=== PATIENT | female | born 1965 | race Caucasian/White ===

== ENCOUNTER 2024-05-07 18:49 | Outpatient (CLI) | payer OTHER, SELFPAY ==
--- NOTE | 2024-05-07 18:45 | DI.RAD_ITS ---
Exam(s) XR RIBS RT W PA LAT CHEST EXAM: XR RIBS RT W PA LAT CHEST CLINICAL HISTORY: evaluate pathology TECHNIQUE: 2D digital imaging was performed. COMPARISON: No exams were available for comparison FINDINGS: Total = 6 views RIBS 4 VIEWS-RIGHT There are no obvious acute rib fractures evident. No lytic rib lesions identified. CXR- 2 VIEWS: No lung contusion or pneumothorax. There is no pleural effusion evident. Heart size is normal and there is no significant mediastinal widening. Descending thoracic aorta is somewhat tortuous. IMPRESSION: 1. No obvious rib fractures evident. Also no significant rib lesions. 2. No ipsilateral lung nor pleural abnormality evident. No pneumothorax. Lungs are clear. DATA REPOSITORY: RADIATION DOSE DELIVERED:
--- NOTE | 2024-05-07 19:59 | DI.VRAD_ITS ---
PROCEDURE INFORMATION: Exam: XR Right Ribs Exam date and time: 05/07/2024 7:01 PM Age: 58 years old Clinical indication: Other: Rib pain; Painful respiration TECHNIQUE: Imaging protocol: Radiologic exam of the right ribs. Views: 2 views. COMPARISON: No relevant prior studies available. FINDINGS: Bones/joints: Oblique views of the right hemithorax show no rib fracture. Soft tissues: Normal. IMPRESSION: No acute findings. PROCEDURE INFORMATION: Exam: XR Chest Exam date and time: 05/07/2024 7:01 PM Age: 58 years old Clinical indication: Other: Rib pain; Painful respiration TECHNIQUE: Imaging protocol: Radiologic exam of the chest. Views: 2 views. COMPARISON: No relevant prior studies available. FINDINGS: Lungs: Lungs are clear with no infiltrate or nodule. Pleural spaces: Unremarkable. No pleural effusion. No pneumothorax. Heart/Mediastinum: Cardiomediastinal silhouette is normal. Vasculature: Tortuous aorta. Bones/joints: Unremarkable. IMPRESSION: No active cardiopulmonary disease. Dictated and Authenticated by: Siddhartha Avina MD. Ordering:RAJINDER Momin MD
== END 2024-05-07 19:09 ==
PROVIDERS: Visit Provider Nurse Practitioner Family
DX: R07.81 Pleurodynia (principal)
CPT/HCPCS: 71046; 71100

== ENCOUNTER 2024-05-08 11:06 | Emergency (ER) | payer OTHER, SELFPAY ==
--- NOTE | 2024-05-08 11:00 | RT.EKG_ITS ---
APPROVED REPORT Exam: Resting ECG Reason for Exam: chest pain Patient Location: E HR:73 bpm ECG Measurements Heart Rate 73 AXIS VT 183 P 42 QRSd 87 QRS -2 QT 365 T 36 QTc 403 Conclusion Sinus rhythm...normal P axis, V-rate 60- 99 Physician: no stemi
--- NOTE | 2024-05-08 11:00 | DI.CT_ITS ---
Exam(s) CT CHEST PE CTA EXAM: CT CHEST PE CTA CLINICAL HISTORY: chest pain, PCP wanted to r/o PE. TECHNIQUE: Imaging Protocol: CT angiography of the chest was performed using pulmonary embolus jose col. Multi planar reconstructions were performed. CONTRAST MATERIAL: Intravenous: Omnipaque 350 Contrast volume: 100 cc COMPARISON: No exams were available for comparison FINDINGS: CHEST: PULMONARY ARTERIES: There are no intraluminal filling defects to suggest acute pulmonary emboli. LUNGS: There are no infiltrates nor evidence of pulmonary infarction.. Markings both lung cole con sistent with some bilateral air trapping noted. There are no pleural effusions. MEDIASTINUM: There is no hilar nor mediastinal adenopathy. Visualized thyroid unremarkable. CARDIAC: Heart size is upper normal. There is no pericardial effusion.There is no shift of the inter ventricular septum. The diameter of the ascending thoracic aorta is enlarged measuring 4 cm. The di ameter of the mid aortic arch is also enlarged measuring 3.1 cm. The diameter of the descending thor acic aorta is upper normal. There is no evidence of aortic dissection. PARTIALLY VISUALIZED UPPERMOST ABDOMEN: No obvious findings OSSEOUS: No significant osseous lesions.. OTHER: Lower images of this study reveal evidence of prior bariatric surgery. The Hussain limb is not d ilated and the [place] excluded stomach is not dilated. No free air seen. IMPRESSION: 1. No evidence of acute pulmonary emboli. No evidence of pulmonary infarction.No pleural effusions. 2. Dilated ascending thoracic aorta measuring 4 cm diameter. No evidence of aortic dissection nor pe ricardial effusion. Normal heart size. 3. Evidence of prior bariatric surgery noted RADIATION DOSE DELIVERED: 153.18mGy.cm Total DLP DATA REPOSITORY: All CT scans at this facility are submitted to the National Radiology Data Registry (NRDR) Dose Index Registry (DIR) with the [employer] (A[employer]). RADIATION OPTIMIZATION: All CT scans at this facility use at least one of these dose optimization te chniques: automated exposure control; mA and/or kV adjustment per patient size (includes targeted exa ms where dose is matched to clinical indication); or iterative reconstruction.
[2024-05-08 11:11] VITALS: BP 128/84; PULSE 80; RESP 24; TEMP 36.4; O2SAT 97
[2024-05-08 11:14] VITALS: BP 128/84; PULSE 80; RESP 24; TEMP 36.4; O2SAT 97
[2024-05-08 11:43] LABS: Abs Immature Grans 0.03 10^3/uL (0.0-0.06); Absolute Basophil Count 0.06 10^3/uL (0.0-0.2); Absolute Eosinophil Count 0.26 10^3/uL (0.0-0.7); Absolute Lymphocyte Count 2.19 10^3/uL (1.2-3.4); Absolute Monocyte Count 0.57 10^3/uL (0.1-0.8); Absolute Neutrophil Count 4.82 10^3/uL (1.2-6.7); Basophils % 0.8 %; Eosinophils % 3.3 %; HCT 40.1 % (36.0-46.0); Immature Grans % 0.4 %; Lymphocytes % 27.6 %; MCH 28.7 pg (27.0-33.0); MCHC 32.4 % (32.0-36.0); MCV 89 fL (80-95); MPV 11.1 fL (8.0-11.0); Monocytes % 7.2 %; Neutrophils % 60.7 %; Platelet Count 273 10^3/uL (130-400); RBC 4.53 10^6/uL (3.93-5.22); RDW 12.9 % (11.7-14.6); RDW-SD 41.8 fL; WBC 7.93 10^3/uL (4.4-10.8)
[2024-05-08 12:07] LABS: ALT 23 U/L (14-59); AST 16 U/L (15-37); Albumin 3.8 g/dL (3.4-5.0); Alkaline Phosphatase 104 U/L (46-116); Anion Gap 9.9 mmol/L (3-11); BUN 11 mg/dL (7-18); Bilirubin, Total 0.43 mg/dL (0.2-1.0); CO2 25.1 mmol/L (21.0-32.0); CREATININE 0.7 mg/dL (0.55-1.02); Calcium 9.1 mg/dL (8.5-10.1); Chloride 108 mmol/L (98-107); Estimated GFR 100.81 (mL/min/1.73m2); Glucose 73 mg/dL (74-106); NT-proBNP 132 pg/mL (<300); Potassium 4.6 mmol/L (3.5-5.1); Sodium 143 mmol/L (136-145); Total Protein 7.4 g/dL (6.4-8.2); Troponin I 6 ng/L (<or=51)
--- NOTE | 2024-05-08 12:29 | ED.GENADUL_ITS ---
Discharge Plan Disposition Patient Disposition: Home Condition: Good Discharge Details Chief Complaint: RespSymp Clinical Impression: Chest wall discomfort Primary Care Provider: Unknown,Unknown ED Provider: Francis Pino Home Meds and New Rx's Prescriptions: No Action No Known Home Meds Discharge Instructions Instructions: Chest Pain, Adult ED Additional Instructions: At this time your CT scan shows no evidence of blood clots, tumors, masses or other significant abnormalities. Your laboratory workup is notably reassuring with no signs of significant cardiac strain, heart attack, or other abnormality. Please take Tylenol and Motrin as needed for pain. If you notice any worsening of your symptoms, or any new symptoms such as vomiting, diarrhea, fever, chills, shortness of breath, chest pain, numbness, weakness, or fainting , please return immediately to the emergency department for reevaluation. Please follow up with your primary care provider as soon as possible for reassessment and reevaluation. As always, it was a pleasure participating in your medical care today. HPI General Date/Time Provider Initiated Documentation: 05/08/24 11:11 . HPI Narrative: 58-year-old female with a past medical history of pulmonary emboli, DVTs, MTHFR, who in the past was on Coumadin, but stopped taking Coumadin in 2015, who presents today with right chest pain. Patient states that 5 days ago she was wrestling on the couch with her and family members, she denies any focal trauma to her chest or back, but there was some rough leg wrestling that occurred. Later that day she noticed some soreness in her right chest, but it was mild. It continued for the next 24 to 48 hours. However about 48 hours ago she had a single cough, after which she had significant chest discomfort in the right chest. It is sharp and aching in nature. It was notably worse with breathing and activity. It was also worse with movement. She denies any further cough. She denies any fever or chills. She denies any numbness tingling or weakness. She denies any hemoptysis. No recent long trips surgeries or procedures. No calf pain swelling or tenderness. She did go to [facility] where she received an x-ray which was negative for significant abnormality, however because of her continued symptoms, it was recommend that she go to the ER for further assessment for potential PE. Related Data Home Medications ?Medication ?Instructions ?Recorded ?Confirmed Unknown [No Known Home Meds] 05/07/24 05/07/24 Allergies Allergy/AdvReac Type Severity Reaction Status Date / Time clindamycin Allergy Severe Cardiac Verified 05/07/24 18:07 Dysrhythmia General Stated Complaint: RespSymp BJ: 3 Review of Systems All systems reviewed & are unremarkable except as noted in HPI and below Exam Narrative Exam Narrative: 1.Const: Well-nourished, Well-developed, appearing stated age 2.Eyes: PERRL, no conjunctival injection, and symmetrical lids. 3.ENT: Atraumatic external nose and ears. Moist MM. Neck: Symmetric, trachea midline, No thyromegaly. 4.CVS: +S1/S2, No murmurs or gallops. Peripheral pulses 2+ and equal in all extremities. Brisk capillary refill in all extremities. 5.RESP: Unlabored respiratory effort. Clear to auscultation bilaterally. No wheezes rales or rhonchi 6.GI: Soft, Nontender/Nondistended, No hepatosplenomegaly. No guarding or rebound. 7.MSK: Normocephalic/Atraumatic, Extremities w/o deformity or ttp No cyanosis or clubbing, Normal movement of all extremities. Midline palpation of cervical thoracic and lumbar spine elicits no significant tenderness. No reproducible rib tenderness. No rash or evidence of bruising. 8.Skin: Warm, Dry. No rashes or lesions. 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 Sensation grossly intact, no focal neurologic deficits. 10.Psych: (AAO) x3. Appropriate mood and affect Course Vital Signs Vital signs: Vital Signs Temperature 36.4 C L 05/08/24 11:11 Pulse 80 05/08/24 11:11 Respiratory Rate 05/08/24 11:11 Blood Pressure 128/84 05/08/24 11:11 Pulse Oximetry 97 05/08/24 11:11 Temperature 36.4 C L 05/08/24 11:14 Pulse 80 05/08/24 11:14 Respiratory Rate 24 05/08/24 11:14 Respiratory Effort Normal 05/08/24 11:14 Blood Pressure 128/84 05/08/24 11:14 Blood Pressure Position Sitting 05/08/24 11:14 Pulse Oximetry 97 05/08/24 11:14 Oxygen Delivery Method Room Air 05/08/24 11:14 Oxygen Flow Rate 0 05/08/24 11:11 Lab/Test Results Lab/Test Results: Laboratory Tests Range/Units 05/08/24 11:31 WBC (4.4-10.8) 10^3/uL 7.93 RBC (3.93-5.22) 10^6/uL 4.53 Hgb (11.2-15.7) g/dL 13.0 Hct (36.0-46.0) % 40.1 MCV (80-95) fL 89 MCH (27.0-33.0) pg 28.7 MCHC (32.0-36.0) % 32.4 RDW (11.7-14.6) % 12.9 Plt Count (130-400) 10^3/uL 273 MPV (8.0-11.0) fL 11.1 H Immature Gran % % 0.4 Neutrophils % % 60.7 Lymphocytes % % 27.6 Monocytes % % 7.2 Eosinophils % % 3.3 Basophils % % 0.8 Nucleated RBC % (0.0-0.3) % 0.0 Absolute Neutrophils (1.2-6.7) 10^3/uL 4.82 Absolute Lymphocytes (1.2-3.4) 10^3/uL 2.19 Absolute Monocytes (0.1-0.8) 10^3/uL 0.57 Absolute Eosinophils (0.0-0.7) 10^3/uL 0.26 Absolute Basophils (0.0-0.2) 10^3/uL 0.06 Sodium (136-145) mmol/L 143 Potassium (3.5-5.1) mmol/L 4.6 Chloride (98-107) mmol/L 108 H Carbon Dioxide (21.0-32.0) mmol/L 25.1 Anion Gap (3-11) mmol/L 9.9 BUN (7-18) mg/dL 11 Creatinine (0.55-1.02) mg/dL 0.7 Est GFR (CKD-EPI 2020) (mL/min/1.73m2) 100.81 Glucose (74-106) mg/dL 73 L Calcium (8.5-10.1) mg/dL 9.1 Total Bilirubin (0.2-1.0) mg/dL 0.43 AST (15-37) U/L 16 ALT (14-59) U/L 23 Alkaline Phosphatase (46-116) U/L 104 Troponin I (<or=51) ng/L 6 NT-Pro-B Natriuret Pep (<300) pg/mL 132 Total Protein (6.4-8.2) g/dL 7.4 Albumin (3.4-5.0) g/dL 3.8 Medical Decision Making 58-year-old female with a past medical history of pulmonary emboli, DVTs, MTHFR, who in the past was on Coumadin, but stopped taking Coumadin in 2014, who presents today with right chest pain. Patient states that 5 days ago she was wrestling on the couch with her and family members, she denies any focal trauma to her chest or back, but there was some rough leg wrestling that occurred. Later that day she noticed some soreness in her right chest, but it was mild. It continued for the next 24 to 48 hours. However about 48 hours ago she had a single cough, after which she had significant chest discomfort in the right chest. It is sharp and aching in nature. It was notably worse with breathing and activity. It was also worse with movement. She denies any further cough. She denies any fever or chills. She denies any numbness tingling or weakness. She denies any hemoptysis. No recent long trips surgeries or procedures. No calf pain swelling or tenderness. She did go to [facility] where she received an x-ray which was negative for significant abnormality, however because of her continued symptoms, it was recommend that she go to the ER for further assessment for potential PE. Exam demonstrates no significant reproducible tenderness on palpation of the r ibs on the right or left. No midline cervical thoracic or lumbar spine tenderness. Differential includes rib fracture, intercostal muscle sprain, however PE and cardiac etiology are certainly on the differential as well. Pneumothorax on the differential as well. Will get a CT scan to further evaluate, we will perform laboratory workup, monitor closely and reassess. 2:31 PM Laboratory workup has returned normal. No white count bandemia or left shift. Initial and repeat troponins are normal. Patient rules out with high- sensitivity troponins. proBNP is normal suggesting no signs of heart strain. Renal function normal. CTA of the chest shows no evidence of tumor or mass or pulmonary emboli. No other evidence of acute life-threatening etiology. No signs of dissection or pneumothorax. Patient's symptoms appear stable and likely secondary to potential musculoskeletal strain. Recommend continued NSAID therapy at home. Discussed red flags for which to return. I have extensively reviewed the treatment plan and discharge instructions with the patient. I have addressed all patient concerns at this time. The patient was made aware of what symptoms to monitor for that would warrant a return to the emergency department. Discussed the plan with the patient, they demonstrate verbal understanding and agreement with our assessment and plan at this time. The documentation in this chart was dictated using [employer] dictation software. Please excuse any dictation errors. FINDINGS: Pulmonary arteries: Normal. No pulmonary emboli. Aorta: Unremarkable. No aortic aneurysm. No aortic dissection. Lungs: Unremarkable. No consolidation. No masses. Pleural spaces: Unremarkable. No pneumothorax. No pleural effusion. Heart: Unremarkable. No cardiomegaly. No pericardial effusion. Lymph nodes: Unremarkable. No enlarged lymph nodes. Intestine: Post Hussain-en-Y gastric bypass. Bones/joints: Unremarkable. No acute fracture. Soft tissues: Unremarkable. IMPRESSION: No pulmonary emboli. Thank you for allowing us to participate in the care of your patient. Dictated and Authenticated by: Mariana Reyna DO 05/08/2024 1:13 PM Eastern Time ([place] & [place]) Quality:SDOH Health Related Social Needs: No Data to Display PFSH All Active Problems (Updated 05/08/24 @ 14:31 by Francis Pino DO) Chest wall discomfort (Acute) Social History Smoking risk assessment performed?: No PAWSS Have you Been Recently Intoxicated or Drunk Within the Last 30 days?: No Have you Ever Experienced Previous Episodes of Alcohol Withdrawal?: No Have you ever Experienced Withdrawal Seizures?: No Have you ever Experienced Delirium Tremens(DT)s?: No Have you ever undergone Alcohol Rehabilitation Treatment (i.e, inpt ot outpatient treatment programs)?: No Have you ever Experienced Blackouts?: No Have you ever Combined Alcohol with other Downers within the last 90 days?: No Have you ever Combined Alcohol with any other Substance of Abuse during the last 90 days?: No Positive Blood Alcohol level on Presentation? [PCS.BAL]: No Evidence of Increased Autonomic Activity (i.e. HR>120, tremor, sweating, agitation, nausea)?: No Result: 0
[2024-05-08] MEDS: Normal Saline - Diluent 50 ML VIAL IJ (12:43)
[2024-05-08] MEDS: Omnipaque 350 MG/ML 100 ML BTL IJ (12:49)
--- NOTE | 2024-05-08 13:14 | DI.VRAD_ITS ---
PROCEDURE INFORMATION: Exam: CTA Chest With Contrast Exam date and time: 05/08/2024 12:41 PM Age: 58 years old Clinical indication: Pain; Right-sided; Patient HX: HX of pe TECHNIQUE: Imaging protocol: Computed tomographic angiography of the chest with contrast. Exam focused on the arteries. 3D rendering (Not supervised by radiologist): MIP and/or 3D reconstructed images were created by the technologist. Contrast material: OMNIPAQUE 350; Contrast volume: 100 ml; Contrast route: INTRAVENOUS (IV); COMPARISON: CR XR RIBS RT W PA LAT CHEST 05/07/2024 7:01 PM FINDINGS: Pulmonary arteries: Normal. No pulmonary emboli. Aorta: Unremarkable. No aortic aneurysm. No aortic dissection. Lungs: Unremarkable. No consolidation. No masses. Pleural spaces: Unremarkable. No pneumothorax. No pleural effusion. Heart: Unremarkable. No cardiomegaly. No pericardial effusion. Lymph nodes: Unremarkable. No enlarged lymph nodes. Intestine: Post Hussain-en-Y gastric bypass. Bones/joints: Unremarkable. No acute fracture. Soft tissues: Unremarkable. IMPRESSION: No pulmonary emboli. Dictated and Authenticated by: Mariana Reyna MD. Ordering:JOSE Blanco MD
[2024-05-08 13:20] LABS: Troponin I 5 ng/L (<or=51)
[2024-05-08 14:39] VITALS: BP 178/93; PULSE 64; RESP 18; O2SAT 98
== END 2024-05-08 14:45 | disposition home or self-care (01) ==
PROVIDERS: Emergency Provider Student in an Organized Health Care Education/Training Program
DX: R07.9 Chest pain, unspecified (principal)
CPT/HCPCS: 71275; 80053; 93005; 99285; 83880; 84484; 85025; 93010; 99284; J3490